=== PATIENT | female | born 1990 | race Caucasian/White ===

== ENCOUNTER 2025-05-11 12:10 | Emergency (ER) | payer SELFPAY ==
[~2025-05-11] VITALS: Ht 160 cm; Wt 100.0 kg
[2025-05-11 12:12] VITALS: BP 133/71; PULSE 79; RESP 16; TEMP 97.4; O2SAT 98
== END 2025-05-11 14:48 | disposition left against medical advice (07) ==
LOC: ER 12:10
DX: R07.89 Other chest pain (principal); Z79.899 Other long term (current) drug therapy